=== PATIENT | male | born 1950 | race Caucasian/White ===

== ENCOUNTER 2020-12-22 01:45 | Observation (INO) | payer OTHER ==
[~2020-12-22] VITALS: Ht 182.9 cm; Wt 96.6 kg
[~2020-12-22 01:45] MED LIST: ASPIRIN EC81 M1 PO; BENAZEPRIL-HCT1 EA12 PO; BENAZEPRIL-HCT1 EAC1 PO; DEPAKOTE500 MG PO; LEVOTHYROXIN0.125 M1 PO; MOBIC15 MG PO; NORCO 5-325 TA1 EACH PO; SIMVASTATIN40 MG PO; ZOFRAN 4 MG ORAL4 M1 DIS
[2020-12-22 01:46] VITALS: BP 161/78
[2020-12-22] MEDS ORDERED: XANAX 0.25 MG0.25 MG PO (01:54)
[2020-12-22] MEDS ORDERED: PAIN RELIEVER325 MG PO (01:55)
[2020-12-22] MEDS ORDERED: IBUPROFEN200 M1 PO (01:56)
[2020-12-22] MEDS ORDERED: VITAMIN B122500 MCG PO (01:57)
[2020-12-22] MEDS ORDERED: VITAMIN D3-ALO1 EACH PO (01:58)
[2020-12-22] MEDS ORDERED: VITAMIN D325 MC3 PO (01:59)
[2020-12-22] MEDS ORDERED: L-LYSINE500 M1 PO (01:59)
[2020-12-22] MEDS ORDERED: NEXIUM 40 MG CA40 M1 PO (02:00)
[2020-12-22] MEDS ORDERED: ATORVASTATIN CA20 MG PO (02:06)
[2020-12-22] MEDS ORDERED: AREDS2 PO (02:07)
[2020-12-22 02:49] LABS: ABSOLUTE NEUTROPHILS 4.4 thou/uL (1.4-8.2); BASOPHILS 0.6 % (0.0-2.0); EOSINOPHILS 0.9 % (0.0-3.0); HEMATOCRIT 41.2 % (42.0-52.0); HEMOGLOBIN 13.6 gm/dL (14.0-18.0); LYMPHOCYTES 22.2 % (24.0-44.0); MCH 29.9 pg (26.0-34.0); MCV 90.5 fL (80.0-100.0); PLATELET COUNT 212 thou/uL (150-400); POLYS 69.3 % (36.0-66.0); RBC 4.55 mil/uL (4.50-6.00); RDW 13.3 % (10.5-14.5); WBC 6.3 thou/uL (4.0-11.0)
[2020-12-22 02:52] LABS: ANION GAP 7 mmol/L (7-16); BUN 10 mg/dL (7-18); CALCIUM 8.5 mg/dL (8.5-10.1); CHLORIDE 100 mmol/L (98-107); CO2 31 mmol/L (21-32); CREATININE 0.9 mg/dL (0.7-1.3); GLUCOSE 98 mg/dL (74-106); POTASSIUM 4.1 mmol/L (3.5-5.1); SODIUM 138 mmol/L (136-145)
[2020-12-22 02:59] LABS: ALBUMIN 3.8 g/dL (3.4-5.0); DIRECT BILIRUBIN < 0.1 mg/dL (<0.1-0.2); SALICYLATE < 2.8 mg/dL (2.8-20.0); SGOT 11 U/L (15-37); SGPT 17 U/L (16-63); TOTAL BILIRUBIN 0.3 mg/dL (0.2-1.0); TOTAL PROTEIN 6.3 g/dL (6.4-8.2)
[2020-12-22 04:14] LABS: AMP/METHAMP Negative (Negative); BARBITURATES Negative (Negative); BENZODIAZEPINES POSITIVE (Negative); COCAINE Negative (Negative); METHADONE Negative (Negative); OPIATES Negative (Negative); PCP Negative (Negative)
--- NOTE | 2020-12-22 08:16 | EKG ---
[address] [place] [employer] [place] [address] ELECTROCARDIOGRAM REPORT Name: BRIGITTEKEYLA [facility] #: 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
--- NOTE | 2020-12-22 11:11 | EKG ---
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
--- NOTE | 2020-12-22 13:07 | NUR ---
DR. PIZARRO BEDSIDE FOR EXAM. PT. TO BE ADMITTED
--- NOTE | 2020-12-22 13:25 | NUR ---
PT. TO BE ADMITTED TO HOSPITAL FOR FURTHER WORKUP. PT. BEDSIDE AND AWARE WELL PATIENT.
[2020-12-22 14:58] LABS: FOLIC ACID 11.9 ng/mL (8.6-58.9)
--- NOTE | 2020-12-22 15:24 | NUR ---
KALLIE DAMIAN, PT'S WHEN ADMITTED [phone]
[2020-12-22 15:27] VITALS: BP 140/71
--- NOTE | 2020-12-22 15:29 | NUR ---
I ATTEMPTED TO CALL REPORT. I WAS TOLD THE RECEIVING RN WILL CALL BACK
[2020-12-22 15:39] VITALS: BP 114/56
[2020-12-22 16:00] VITALS: BP 114/56
--- NOTE | 2020-12-22 16:17 | NUR ---
PT PRESENTED FROM THE ED AT 1550, PT WAS SITTING ON THE SIDE OF BED, THE EMERGENCY ROOM TECH LEFT THE ROOM, WHILE THE 4W TECH WAS GRABBING TELEMETRY MONITORING. PT WAS LEANING FORWARD TO GRAB A PIECE OF PAPER OFF THE FLOOR AND FELL FORWARD HITTING HIS RIGHT SIDE OF THE HEAD. PTS NEURO EXAM WAS NEGATIVE. PT STATES HE HAS SOME MINOR PAIN WITH PALPATION. FALL OCCURRED APPROXIMATELY 1554.
[2020-12-22 17:20] VITALS: BP 145/85
--- NOTE | 2020-12-22 17:52 | NUR ---
ATTEMPTED TO NOTIFY , UNSUCCESSFUL. DID NOT HAVE HER NAME IN THE VOICEMAIL, FELT UNCOMFORTABLE TO LEAVE MESSAGE, WILL ATTEMPT AGAIN.
[2020-12-22 22:01] VITALS: BP 124/66
--- NOTE | 2020-12-23 04:40 | NUR ---
Pt. rested quietly at intervals during the night when checked on during frequent rounds. He was a little impulsive at the first of the shift. Attempting to get up out of bed without calling for assistance after ed- ucating the patient several times how to use his call light. Pt. is quick on his feet. He offers no c/o pain. Pt. has been alert, but very forgetful. Bed alarm is on.
[2020-12-23 06:13] LABS: ABSOLUTE NEUTROPHILS 6.1 thou/uL (1.4-8.2); BASOPHILS 0.6 % (0.0-2.0); EOSINOPHILS 3.3 % (0.0-3.0); HEMATOCRIT 41.7 % (42.0-52.0); LYMPHOCYTES 18.5 % (24.0-44.0); MCHC 33.6 g/dL (28.0-37.0); MCV 92.2 fL (80.0-100.0); MONOCYTES 6.1 % (1.0-8.0); PLATELET COUNT 220 thou/uL (150-400); POLYS 71.5 % (36.0-66.0); RBC 4.53 mil/uL (4.50-6.00); RDW 13.9 % (10.5-14.5); WBC 8.6 thou/uL (4.0-11.0)
[2020-12-23 06:39] LABS: CALCIUM 8.4 mg/dL (8.5-10.1); CREATININE 0.7 mg/dL (0.7-1.3); MAGNESIUM 2.1 mg/dL (1.8-2.4); POTASSIUM 4.4 mmol/L (3.5-5.1)
[2020-12-23 07:59] VITALS: BP 140/73
--- NOTE | 2020-12-23 10:57 | NUR ---
Received awake on bed. Due medications given as prescribed, able to swallow meds w/o difficulty. On room air. Vital signs stable. On regular diet- tolerating well; no nausea, no vomiting and no abdominal pain noted. On telemetry; no complains and signs of chest pain, crushing sensation and heaviness. Assisted in ADLs. Continent of bowel and bladder, able to use urinal, bedside commode and go to the toilet with standby to moderate assist- Falls bundle in place- high risk due to admitting diagnosis and recent fall 12/22. With NS at 100cc/hr, infusing well at L AC. No complains of pain made during assessment. To continue monitoring patient.
[2020-12-23 13:00] VITALS: BP 137/68
--- NOTE | 2020-12-23 13:43 | NUR ---
cm visit with yuriy earlier this am, cm cont to wear face mask and shield during visit. 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 he stood by himself. intro to cm and dcp. he reported " home with , lots steps 22, independent when feeling ok. manage own medication. not use pill box vit to big to fit in box, accidental took xanax instead of evening medication. 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 no had a drink in [address] [facility], is dr nina tejeda. works from home know"/yuriy. education on having manage medication at home. cm visited with candelario via phone call she agree assist with his medication. possible dc today after see by tello. dcp home with .
[2020-12-23 13:58] VITALS: BP 140/73
== END 2020-12-23 14:00 | disposition home or self-care (01) ==
LOC: ER 01:45 → 4W 13:02 → EROBS 13:02 → 4W 15:49
PROVIDERS: Emergency Medicine; Nurse Practitioner; ADMIT Internal Medicine; ATTEND Internal Medicine
DX: T42.4X1A Poisoning by benzodiazepines, accidental (unintentional), initial encounter (principal); F31.9 Bipolar disorder, unspecified; G31.84 Mild cognitive impairment of uncertain or unknown etiology; G93.41 Metabolic encephalopathy; E03.9 Hypothyroidism, unspecified; E78.5 Hyperlipidemia, unspecified; F41.9 Anxiety disorder, unspecified; I10 Essential (primary) hypertension; Z87.891 Personal history of nicotine dependence; Z79.899 Other long term (current) drug therapy; Y92.89 Other specified places as the place of occurrence of the external cause
CPT/HCPCS: 10045